=== PATIENT | male | born 1985 | race Caucasian/White ===

== ENCOUNTER 2016-11-17 15:37 | Emergency (ER) | payer OTHER | END 2016-11-17 15:43 | disposition home or self-care (01) | LOC: CFTX 15:37 | DX: S16.1XXA Strain of muscle, fascia and tendon at neck level, initial encounter (principal); S39.012A Strain of muscle, fascia and tendon of lower back, initial encounter; V49.40XA Driver injured in collision with unspecified motor vehicles in traffic accident, initial encounter; Y92.410 Unspecified street and highway as the place of occurrence of the external cause | CPT/HCPCS: 99283 ==